=== PATIENT | female | born 1985 | race Caucasian/White ===

== ENCOUNTER 2022-10-14 08:56 | Emergency (ER) | payer OTHER ==
[~2022-10-14] VITALS: Ht 177.8 cm; Wt 77.3 kg
[2022-10-14] MEDS ORDERED: MORPHINE 4 MG/ML 1ML VIAL IV ONE (09:45)
[2022-10-14] MEDS ORDERED: ONDANSETRON 4MG 2ML VIAL IV ONE (09:45)
[2022-10-14 10:06] LABS: BASO # 0.1 10^3/uL (0.0-0.2); BASO % 0.5 % (0.0-1.0); EOS # 0.1 10^3/uL (0.0-0.5); EOS % 0.6 % (0.0-3.0); HEMOGLOBIN 13.3 g/dl (12.0-15.5); LYMPH # 2.1 10^3/uL (1.5-5.0); LYMPH % 19.3 % (24.0-44.0); MEAN CORPUSCULAR HEMOGLOBIN 30.6 pg (27.0-33.0); MEAN CORPUSCULAR HGB CONC 34.1 g/dl (32.0-36.5); MEAN CORPUSCULAR VOLUME 89.7 fl (80.0-96.0); MONO # 0.7 10^3/uL (0.0-0.8); MONO % 6.4 % (2.0-8.0); NEUTROPHILS # 7.8 10^3/uL (1.5-8.5); NEUTROPHILS % 72.8 % (36.0-66.0); RED BLOOD COUNT 4.35 10^6/uL (4.00-5.40); WHITE BLOOD COUNT 10.6 10^3/uL (4.0-10.0)
[2022-10-14 10:08] LABS: PLATELET COUNT, AUTOMATED 83 10^3/uL (150-450)
[2022-10-14 10:27] LABS: INR 0.93; PROTHROMBIN TIME 12.7 SECONDS (12.5-14.5)
[2022-10-14 10:28] LABS: PARTIAL THROMBOPLASTIN TIME 23.7 SECONDS (24.8-34.2)
[2022-10-14 10:31] LABS: BLOOD UREA NITROGEN 11 MG/DL (9-23); CARBON DIOXIDE LEVEL 19 MMOL/L (20-31); CHLORIDE LEVEL 107 MMOL/L (98-107); CREATININE FOR GFR 0.65 MG/DL (0.55-1.30); GLOMERULAR FILTRATION RATE > 60.0 (>60); GLUCOSE, FASTING 112 MG/DL (60-100); POTASSIUM SERUM 3.1 MMOL/L (3.5-5.1); SODIUM LEVEL 139 MMOL/L (136-145)
[2022-10-14] MEDS ORDERED: HYDROMORPHONE HCL 0.5 MG/ 0.5 ML SYRINGE IV PRN (10:45)
[2022-10-14] MEDS ORDERED: MIRA3350 PO (12:27)
[2022-10-14] MEDS ORDERED: PERC5TAB12 PO (12:27)
[2022-10-14 12:31] VITALS: BP 119/70; TEMP 98.7; O2SAT 100
== END 2022-10-14 12:41 | disposition home or self-care (01) ==
LOC: M ED 08:56
DX: S82.202A Unspecified fracture of shaft of left tibia, initial encounter for closed fracture (principal); S82.452A Displaced comminuted fracture of shaft of left fibula, initial encounter for closed fracture; S82.302A Unspecified fracture of lower end of left tibia, initial encounter for closed fracture; Y92.009 Unspecified place in unspecified non-institutional (private) residence as the place of occurrence of the external cause; Y93.89 Activity, other specified; F41.9 Anxiety disorder, unspecified; Z91.040 Latex allergy status
CPT/HCPCS: 73560; 73700; 80047; 80048; 85025; 85049; 85055; 85610; 85730; 86850; 86900; 86901; 94760; 96374; 96375; 99284; J1170; J2405

== ENCOUNTER → 2022-10-17 | Outpatient (CLI) | payer OTHER ==
[~2022-10-17] MED LIST: MIRA3350 PO; PERC5TAB12 PO
== END ==
LOC: M SOG 09:21
PROVIDERS: ATTEND Orthopaedic Surgery
DX: M25.562 Pain in left knee (principal)